=== PATIENT | female | born 1970 | race Two or more races ===

== ENCOUNTER 2016-11-29 17:15 | Emergency (ER) | payer MEDICAID ==
[~2016-11-29] VITALS: Ht 160 cm; Wt 62.6 kg
[~2016-11-29 17:15] MED LIST: AZIT250T PO
--- NOTE | 2016-11-29 17:24 | NUR ---
PT TO ER BED 12 C/O RUQ ABDOMINAL PAIN SINCE YESTERDAY AND WORST TODAY. DENIES N/V/D. GOWNED AND PLACED O MONITOR. NAD NOTED. LISSETT NG.
--- NOTE | 2016-11-29 17:35 | NUR ---
DR WU AT FOR EVAL.
[2016-11-29 17:44] LABS: BASOPHILS % (AUTO) 0.3 % (0.0-2.0); EOSINOPHILS % (AUTO) 0.2 % (0.0-6.0); HEMATOCRIT 40 % (33-45); HEMOGLOBIN 12.4 g/dL (11.5-14.8); LYMPHOCYTES % (AUTO) 13.7 % (20.0-44.0); MEAN CORPUSCULAR HEMOGLOBIN 23 PG (26.0-33.0); MEAN CORPUSCULAR HGB CONC 31 g/dl (31.0-36.0); MEAN CORPUSCULAR VOLUME 72 fL (82-100); MONOCYTES # (AUTO) 0.6 /CMM (0.1-1.30); MONOCYTES % (AUTO) 4.1 % (2.0-12.0); NEUTROPHILS # (AUTO) 11.8 /CMM (1.8-8.9); NEUTROPHILS % (AUTO) 81.7 % (43.0-81.0); PLATELET COUNT (AUTO) 302 /CMM (150-450); RDW COEFFICIENT OF VARIATION 14.1 (11.5-15.0); RED BLOOD CELL COUNT(AUTO) 5.47 MIL/uL (4.0-5.2); WHITE BLOOD COUNT (AUTO) 14.4 K/uL (4.3-11.0)
[2016-11-29] MEDS ORDERED: MORPHINE SULFATE INJ 4 MG/ML DISP.SYRIN ONE (17:53)
[2016-11-29] MEDS ORDERED: IV NS 0.9% 500 ML IV ONE (17:53)
[2016-11-29] MEDS ORDERED: ONDANSETRON HCL/PF 4 MG/2 ML VIAL ONE (17:53)
[2016-11-29] MEDS ORDERED: IV SET PRIMARY PUMP SET 1 EA INFUS.SET MC ONE (17:53)
[2016-11-29 17:59] LABS: CALCIUM, SERUM 8.9 mg/dL (8.5-10.1); CARBON DIOXIDE 24 mmol/L (21-32); CHLORIDE 100 mmol/L (98-107); CREATININE 0.7 mg/dL (0.6-1.3); GFR 89 mL/min (>60); GLUCOSE 113 mg/dL (74-106); POTASSIUM 3.4 mmol/L (3.5-5.1); SODIUM SERUM 135 mmol/L (136-145); UREA NITROGEN, BLOOD 5 mg/dL (7-18)
[2016-11-29] MEDS ORDERED: MORPHINE SULFATE INJ 2 MG/ML DISP.SYRIN IV ONE (18:00)
[2016-11-29] MEDS ORDERED: IV NS 0.9% 500 ML BAG IV ONE (18:00)
[2016-11-29] MEDS ORDERED: ONDANSETRON HCL/PF 4 MG/2 ML VIAL IVP ONE (18:00)
[2016-11-29 18:01] LABS: INR 1.01 (0.87-1.13); PROTHROMBIN TIME 10.5 SECS (9.5-12.7)
[2016-11-29 18:04] LABS: APPEARANCE,URINE Clear (CLEAR); BILIRUBIN,URINE Negative (NEGATIVE); BLOOD, URINE Small Ery/uL (NEGATIVE); COLOR,URINE Yellow (YELLOW); KETONES,URINE Negative (NEGATIVE); LEUKOCYTE ESTERASE ,URINE Small (NEGATIVE); NITRITE, URINE Negative (NEGATIVE); PROTEIN,URINE Trace mg/dl (NEGATIVE); UGLUCOSE Negative (NEGATIVE)
[2016-11-29 18:05] LABS: ALANINE AMINOTRANSFERASE 36 U/L (12-78); ALBUMIN 3.7 g/dL (3.4-5.0); ALKALINE PHOSPHATASE 135 U/L (46-116); ASPARTATE AMINOTRANSFERASE 35 U/L (15-37); BILIRUBIN,DIRECT 0.1 mg/dL (0.0-0.2); BILIRUBIN,TOTAL 0.6 mg/dL (0.2-1.0); LIPASE 123 U/L (73-393); TOTAL PROTEIN, SERUM 8.2 g/dL (6.4-8.2); TROPONIN I < 0.017 ng/mL (0.00-0.056)
[2016-11-29 18:06] LABS: PREGNANCY TEST URINE QUAL NEGATIVE (NEGATIVE)
--- NOTE | 2016-11-29 18:08 | NUR ---
U/S TECH AT BEDSIDE FOR GALLBLADDER ULTRASOUND.
[2016-11-29 18:16] LABS: LACTIC ACID 1.5 mmol/L (0.4-2.0)
[2016-11-29 18:44] LABS: BAND % (MANUAL) 2 % (0.0-5.0); LYMPHOCYTES % (MANUAL) 10 % (16-48); MONOCYTES % (MANUAL) 8 % (0-11.0); NEUTROPHILS % (MANUAL) 80 (42-76); PLATELET ESTIMATE ADEQUATE
[2016-11-29] MEDS ORDERED: CT SWABBABLE VALVE TRANS SET 1 EA INFUS.SET MC ONE (18:58)
[2016-11-29] MEDS ORDERED: IV NS 0.9% 250 ML IV ONE (18:58)
[2016-11-29] MEDS ORDERED: IOHEXOL-300 100 ML VIAL IV ONE (18:58)
[2016-11-29 19:06] LABS: ADD URINE CULTURE YES; BACTERIA,URINE Few /HPF (None Seen); SQUAMOUS EPITHELIAL CELL,UR Few /HPF (None Seen)
[2016-11-29] MEDS ORDERED: NITROFURANTOIN/NITROFURAN MAC 100 MG CAPSULE PO ONE (20:00)
[2016-11-29] MEDS ORDERED: NITROFURANTOIN/NITROFURAN MAC 100 MG CAPSULE ONE (20:03)
--- NOTE | 2016-11-29 20:45 | NUR ---
U/S TECH BACK AT BEDSIDE FOR PELVIC ULTRASOUND.
--- NOTE | 2016-11-29 21:48 | NUR ---
IV removed. Catheter intact and site benign. Pressure and 4x4 applied to site. No bleeding noted.
[2016-11-29 21:49] VITALS: BP 145/82
--- NOTE | 2016-11-29 21:49 | NUR ---
The patient was discharged in stable condition; diagnosis abdominal pain, urinary tract infection. No acute distress. The patient was discharged home with family.
== END 2016-11-29 21:50 | disposition home or self-care (01) ==
LOC: ER 17:17
DX: R10.11 Right upper quadrant pain (principal)
CPT/HCPCS: 36415; 71010-TC; 76705-TC; 76856-TC; 80048-TC; 80076-TC; 81000-TC; 83605-TC; 83690-TC; 84484-TC; 84703-TC; 85025-TC; 85730-TC; 87040-TC; 87086-TC; A4606; J2270; J2405; J7040; J7050; Q9967; Z7610

== ENCOUNTER 2016-12-01 14:52 | Emergency (ER) | payer MEDICAID ==
[~2016-12-01] VITALS: Ht 160 cm; Wt 62.6 kg
[2016-12-01 14:58] VITALS: BP 103/80
== END 2016-12-01 15:56 | disposition home or self-care (01) ==
LOC: ER 14:55
DX: R10.32 Left lower quadrant pain (principal); Z98.890 Other specified postprocedural states
CPT/HCPCS: A4606; Z7502; Z7610

== ENCOUNTER → 2017-07-21 | Emergency (ER) | payer SELFPAY ==
[~2017-07-21] VITALS: Ht 165.1 cm; Wt 62.6 kg
[~2017-07-21] MED LIST changes: +FAMOTIDINE/PF INJ 20 MG/2 ML VIAL IV ONE; +IV NS 0.9% 1,000 ML BAG IV ONE; +ONDANSETRON HCL/PF 4 MG/2 ML VIAL IVP ONE; +ONDANSETRON HCL/PF 4 MG/2 ML VIAL ONE
--- NOTE | 2017-07-21 22:28 | NUR ---
PT RECEIVED FROM HOME COMPLAINING OF GASTROREFLUX AND ABDOMINAL PAIN 01/04 NONRADIATING. NO SOB NOTED. A/O X4 ABLE OT MAKE NEEDS KNOWN. FAMILY AT BEDSIDE
--- NOTE | 2017-07-21 22:31 | NUR ---
URINE COLLECTED. SENT TO LAB
--- NOTE | 2017-07-21 22:39 | NUR ---
DR. IYER AT BEDSIDE FOR EVAL.
--- NOTE | 2017-07-22 00:57 | NUR ---
D/C PAPERWORK GIVEN TO PATIENT. AGREES AND UNDERSTANDS
[2017-07-22 00:58] VITALS: BP 115/61
== END | disposition home or self-care (01) ==
LOC: ER 22:12
DX: A08.39 Other viral enteritis (principal); E86.0 Dehydration
CPT/HCPCS: A4606; J2405; J3490; J7030; Z7610

== ENCOUNTER 2017-10-18 05:01 | Emergency (ER) | payer SELFPAY ==
[~2017-10-18] VITALS: Ht 160 cm; Wt 63.5 kg
[~2017-10-18 05:01] MED LIST changes: -FAMOTIDINE/PF INJ 20 MG/2 ML VIAL IV ONE; -IV NS 0.9% 1,000 ML BAG IV ONE; -ONDANSETRON HCL/PF 4 MG/2 ML VIAL IVP ONE; -ONDANSETRON HCL/PF 4 MG/2 ML VIAL ONE
--- NOTE | 2017-10-18 05:10 | NUR ---
CALLED NAME X3. NO ONE IN WR AT THIS TIME.
--- NOTE | 2017-10-18 05:24 | NUR ---
CALLED PT NAME X3. NO ON IN WR AT THIS TIME.
--- NOTE | 2017-10-18 05:40 | NUR ---
TO BED 9 A 47 YO FEMALE PATIENT BIBSELF C/O ABD PAIN AND DISTENDED ABD SINCE 4AM. DENIES N/V. PATIENT IS AAOX3, NAD NOTED. VSS. SKIN WARM AND DRY. GOWNED. COMFORT MEASURES RENDERED.
[2017-10-18] MEDS ORDERED: MORPHINE SULFATE INJ 2 MG/ML DISP.SYRIN ONE (06:10)
[2017-10-18] MEDS ORDERED: ONDANSETRON HCL/PF 4 MG/2 ML VIAL ONE (06:10)
--- NOTE | 2017-10-18 06:18 | NUR ---
started a saline lock on the rac g18, blood drawn and sent to lab.
[2017-10-18] MEDS: ONDANSETRON HCL/PF 4 MG/2 ML VIAL IVP ONE (06:20)
[2017-10-18] MEDS: IV NS 0.9% 500 ML BAG IV ONE (06:20)
[2017-10-18] MEDS: MORPHINE SULFATE INJ 2 MG/ML DISP.SYRIN IV ONE (06:21)
--- NOTE | 2017-10-18 06:21 | NUR ---
medicated patient as ordered by Dr Rapp.
[2017-10-18 06:32] LABS: APPEARANCE,URINE CLEAR (CLEAR); BILIRUBIN,URINE NEGATIVE (NEGATIVE); BLOOD, URINE 1+ Ery/uL (NEGATIVE); COLOR,URINE YELLOW (YELLOW); KETONES,URINE NEGATIVE (NEGATIVE); LEUKOCYTE ESTERASE ,URINE NEGATIVE (NEGATIVE); NITRITE, URINE NEGATIVE (NEGATIVE); PROTEIN,URINE NEGATIVE (NEGATIVE); UGLUCOSE NEGATIVE (NEGATIVE)
[2017-10-18 06:36] LABS: CALCIUM, SERUM 8.4 mg/dL (8.5-10.1); CREATININE 0.6 mg/dL (0.6-1.3)
[2017-10-18 06:39] LABS: BASOPHILS % (AUTO) 0.3 % (0.0-2.0); EOSINOPHILS # (AUTO) 0.1 /CMM (0.0-0.7); EOSINOPHILS % (AUTO) 0.8 % (0.0-6.0); HEMATOCRIT 35 % (33-45); HEMOGLOBIN 11.1 g/dL (11.5-14.8); LYMPHOCYTES # (AUTO) 1.6 /CMM (0.8-4.8); LYMPHOCYTES % (AUTO) 15.6 % (20.0-44.0); MEAN CORPUSCULAR HEMOGLOBIN 23 PG (26.0-33.0); MEAN CORPUSCULAR HGB CONC 32 g/dl (31.0-36.0); MEAN CORPUSCULAR VOLUME 73 fL (82-100); MONOCYTES # (AUTO) 0.4 /CMM (0.1-1.30); MONOCYTES % (AUTO) 4.2 % (2.0-12.0); NEUTROPHILS # (AUTO) 8.3 /CMM (1.8-8.9); NEUTROPHILS % (AUTO) 79.1 % (43.0-81.0); PLATELET COUNT (AUTO) 336 /CMM (150-450); RDW COEFFICIENT OF VARIATION 15.5 (11.5-15.0); RED BLOOD CELL COUNT(AUTO) 4.76 MIL/uL (4.0-5.2); WHITE BLOOD COUNT (AUTO) 10.4 K/uL (4.3-11.0)
[2017-10-18 06:42] LABS: ALBUMIN 3.4 g/dL (3.4-5.0); BILIRUBIN,DIRECT 0.1 mg/dL (0.0-0.2); BILIRUBIN,TOTAL 0.3 mg/dL (0.2-1.0); TOTAL PROTEIN, SERUM 7.2 g/dL (6.4-8.2)
--- NOTE | 2017-10-18 06:47 | NUR ---
PT TO CT.
[2017-10-18 06:48] LABS: BACTERIA,URINE None seen /HPF (None Seen); SQUAMOUS EPITHELIAL CELL,UR Few /HPF (None Seen); WBC,URINE NONE SEEN /HPF (0-3)
--- NOTE | 2017-10-18 07:18 | NUR ---
report given to [facility] for cathryn.
[2017-10-18 07:38] VITALS: BP 129/68
--- NOTE | 2017-10-18 07:39 | NUR ---
IV removed. Catheter intact and site benign. Pressure and 4x4 applied to site. No bleeding noted. Patient discharged to home in stable condition. Written and verbal after care instructions given. Patient verbalizes understanding of instruction.
== END 2017-10-18 07:39 | disposition home or self-care (01) ==
LOC: ER 05:02
DX: R10.9 Unspecified abdominal pain (principal)
CPT/HCPCS: 36415; 74176; 80048; 80076; 81001; 83690; 84703; 85025; 96374; 96375; 99285; A4606; J2270; J2405; J7040; Z7610; 81000-TC